=== PATIENT | male | born 1955 | race Caucasian/White ===

== ENCOUNTER 2016-04-15 | Outpatient (CLI) | payer MEDICAID | END 2016-04-15 14:32 | disposition EMS.NT ==

== ENCOUNTER 2017-11-26 08:15 | Emergency (ER) | payer MEDICAID ==
--- NOTE | 2017-11-26 09:14 | ED Physician Documentation ---
History of Present Illness - Stated complaint Stated Complaint: MALE - Chief complaint Chief Complaint: Abd Pain - Additonal information Additional information: hx from pt 62 male to ED for R tetsicle pain X 4 days worse with moveemnt no trauma no fever no abd pain no dysuria no dc no concern for STD - no sex since 20 + yr ago Review of Systems Constitutional: denies: Fever GI: denies: Abdominal Pain : reports: Testicular pain. denies: Dysuria, Discharge PD PAST MEDICAL HISTORY - Past Surgical History Past Surgical History: Yes - Allergies Allergies/Adverse Reactions: Allergies Allergy/AdvReac Type Severity Reaction Status Date / Time No Known Drug Allergies Allergy Verified 11/26/17 08:24 - Social History Does the pt smoke?: Yes Does the pt drink ETOH?: No Does the pt have substance abuse?: No - Immunizations Immunizations are current?: No Immunizations: TDAP >10years/unknown PD ED PE NORMAL - Vitals Vital signs reviewed: Yes - Neck Neck: Supple, no meningeal sign - Cardiac Cardiac: RRR - Respiratory Respiratory: No respiratory distress, Clear bilaterally - Abdomen Abdomen: Soft, Non tender - Male Male : Other (circ, testes desc but right is smaller and diff to palpate and ride higher, nl lie, + cremasteric, mod TTP,m no mass sppreciated, no hernia, no lesions) Results - Vitals Vitals: Vital Signs - 24 hr 11/26/17 11/26/17 11/26/17 08:22 11:21 13:47 Temperature 36.0 C L 36.4 C L Heart Rate 78 64 67 Respiratory 16 16 16 Rate Blood Pressure 122/86 H 127/95 H 113/94 H O2 Saturation 98 100 100 Oxygen O2 Source Room air - Labs Labs: Laboratory Tests 11/26/17 09:18 Urine Color YELLOW Urine Clarity CLEAR Urine pH 5.5 Ur Specific [place] >=1.030 H Urine Protein NEGATIVE Urine Glucose (UA) NEGATIVE Urine Ketones NEGATIVE Urine Occult Blood NEGATIVE Urine Nitrite NEGATIVE Urine Bilirubin NEGATIVE Urine Urobilinogen 0.2 (NORMAL) Ur Leukocyte Esterase NEGATIVE Ur Microscopic Review NOT INDICATED Urine Culture Comments NOT INDICATED - Rads (name of study) testicular sono Radiology: See rad report (see rad report, no mass, no abscess, dec central flow R testicle could be torsion detorison) PD MEDICAL DECISION MAKING - ED course ED course: d/w urology physician surgeon Dr Horn he advises does not emergent surgery as some flow is documented and sx have been going on 4 days suggests I attempt detorison and call him back after toradol I was able to rotate testicle two rounds, was already lower riding again but did have some dec in discomfort d/w urology and rec outpt clinic fup pt no pain at this time - Sepsis Event Vital Signs: Vital Signs - 24 hr 11/26/17 11/26/17 11/26/17 08:22 11:21 13:47 Temperature 36.0 C L 36.4 C L Heart Rate 78 64 67 Respiratory 16 16 16 Rate Blood Pressure 122/86 H 127/95 H 113/94 H O2 Saturation 98 100 100 Oxygen O2 Source Room air Departure - Departure Disposition: 01 Home, Self Care Clinical Impression: Testicle pain Condition: Good Comments: The radiologist report indicates that you may intermittently be suffering from low blood flow to the right testicle There was no tumor seen - there was a tiny 3 mm spot on the edge of the testicle that could be fluid but you should have to urologist take a look at it And there was no infection Since the blood flow is better now, you can go home Please follow up with urologist Dr Horn in clinic - call Return if worse (or consider going to [facility] where there is urology physician surgeon if needed)
[2017-11-26 09:39] LABS: BILIRUBIN,URINE NEGATIVE (NEGATIVE); GLUCOSE, URINE (UA) NEGATIVE (NEGATIVE); KETONES,URINE (UA) NEGATIVE (NEGATIVE); LEUKOCYTE ESTERASE, URINE NEGATIVE (NEGATIVE); NITRITE,URINE NEGATIVE (NEGATIVE); OCCULT BLOOD,URINE NEGATIVE (NEGATIVE); PH,URINE 5.5 PH (5.0-7.5); PROTEIN,URINE NEGATIVE (NEGATIVE); UROBILINOGEN,URINE 0.2 (NORMAL) E.U./dL (NORMAL)
[2017-11-26 09:41] LABS: CLARITY,URINE CLEAR (CLEAR)
--- NOTE | 2017-11-26 11:29 | Ultrasound Report ---
Reason: high riding R testicle, pain for 4 days Procedure Date: 11/26/2017 Accession Number: [id number] / [id number] Procedure: US - Testicle w/Doppler CPT Code: FULL RESULT: EXAM: SCROTAL ULTRASOUND EXAM DATE: 11/26/2017 09:53 AM. CLINICAL HISTORY: High riding right testicle, pain for 4 days. COMPARISON: None. TECHNIQUE: Real-time scanning was performed with static images obtained. Both color-flow and Doppler spectral analysis were utilized. FINDINGS: Right: Testis: 3.1 x 1.8 x 1.4 cm. Compared to the left testicle the right testicle demonstrates a heterogeneous echotexture and appears smaller. Peripherally arterial and venous spectral waveforms are identified. Centrally, spectral tracing is monophasic, poor quality and either venous or tardus parvus. A 3 mm hyperechoic focus in the peripheral right testicle is of unclear clinical significance. Epididymis: 1.2 x 0.9 x 0.4 cm. Several epididymal cysts are demonstrated. Hydrocele: Trace. Varicocele: None. Left: Testis: 4.1 x 2.4 x 1.4 cm. Normal size and echotexture. No mass, calcification, or abnormal blood flow. Epididymis: 1.0 x 1.2 x 0.7 cm. Normal size and echotexture. No mass or abnormal blood flow. Hydrocele: None. Varicocele: None. IMPRESSION: Findings are concerning for torsion detorsion of the right testicle. CRITICAL RESULT: The findings were discussed with Dr. Kerns on 11/26/2017 at 11:10 AM. CEM
[2017-11-26] MEDS ORDERED: KETOROLAC 60 MG/2 ML VIAL IVP STA (12:27)
[2017-11-26 13:48] VITALS: BP 113/94
== END 2017-11-26 14:28 | disposition home or self-care (01) ==
LOC: ED 08:15
DX: N50.811 Right testicular pain (principal)
CPT/HCPCS: 76870; 81001; 81003; 87086; 93975; 96374; 99283